=== PATIENT | male | born 1985 | race Caucasian/White ===

== ENCOUNTER 2018-08-25 23:54 | Observation (INO) | payer MEDICAID ==
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
[2018-08-26] MEDS ORDERED: Diphtheria,Pertussis(Acell),Tetanus Vaccine 0.5 ML Syringe IM ONE (01:07)
[2018-08-26] MEDS ORDERED: Ondansetron 4 MG/2 ML SDV ONE (01:28)
[2018-08-26] MEDS ORDERED: fentaNYL 250 MCG/5 ML SDV ONE (01:29)
[2018-08-26] MEDS ORDERED: Midazolam 1 MG/ML 2 ML SDV ONE (01:29)
[2018-08-26] MEDS ORDERED: Propofol 200 MG/20 ML SDV ONE (01:29)
[2018-08-26] MEDS ORDERED: ceFAZolin 1 GM Vial ONE (01:31)
[2018-08-26] MEDS ORDERED: Bupivacaine 0.5% 30 ML SDV ONE (01:33)
[2018-08-26] MEDS ORDERED: Lidocaine 1% with EPINEPHrine 1:100,000 20 ML MDV ONE (01:33)
[2018-08-26] MEDS ORDERED: Rocuronium 50 MG/5 ML Vial ONE (01:47)
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
[2018-08-26] MEDS ORDERED: Lactated Ringers 1,000 ML ONE (03:21)
[2018-08-26] MEDS ORDERED: Sodium Chloride 0.9% 1,000 ML ONE (03:21)
[2018-08-26] MEDS ORDERED: Sodium Chloride 0.9% 100 ML ONE (04:50)
[2018-08-26] MEDS ORDERED: Bacitracin Oint 15 GM Tube ONE (04:54)
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
[2018-08-26] MEDS ORDERED: HYDROmorphone 0.5 MG/0.5 ML Syringe IVPUSH PRN ×2 (05:56→06:52)
[2018-08-26] MEDS ORDERED: fentaNYL 100 MCG/2 ML SDV IVPUSH PRN (05:56)
--- NOTE | 2018-08-26 05:58 | PCM.POSTAN ---
POST ANESTHESIA ASSESSMENT - MENTAL STATUS Mental Status: Somnolent - VITAL SIGNS Pulse Rate: 112 SaO2: 94 Resp Rate: 15 Blood Pressure: 114/70 Temperature: 37.7 C - RESPIRATORY Respiratory Status: Respiratory Rate WNL, Airway Patent, O2 Saturation Stable, Supplemental Oxygen - CARDIOVASCULAR CV Status: Pulse Rate WNL, Blood Pressure Stable - GASTROINTESTINAL GI Status: No Symptoms - PAIN Pain Score: 0 - POST OP HYDRATION Hydration Status: Adequate & Stable - OBSERVATIONS Free Text/Narrative:: no anesthesia complications noted
--- NOTE | 2018-08-26 06:00 | PCM.PREANE ---
Preanesthetic Assessment - Anesthesia/Transfusion/Family Hx Anesthesia History: Prior Anesthesia Without Reaction Family History of Anesthesia Reaction: No Transfusion History: No Prior Transfusion(s) - Review of Systems General: Weakness, Fatigue, Malaise Pulmonary: No Symptoms Cardiovascular: No Symptoms Gastrointestinal: Abdominal Pain Neurological: Numbness (right arm), Weakness (right arm) Other: Reports: Depression, Anxiety - Physical Assessment NPO Status Date: 08/26/18 NPO Status Time: 23:15 Pulse: 96 O2 Sat by Pulse Oximetry: 96 Respiratory Rate: 20 Blood Pressure: 110/63 Temperature: 37.7 C Vital Signs: Last Vital Signs Temp 37.7 C 08/26/18 05:58 Pulse 112 H 08/26/18 05:58 Resp 15 08/26/18 05:58 BP 114/70 08/26/18 05:58 Pulse Ox 94 L 08/26/18 05:58 Height: 1.8 m Weight: 90.718 kg ASA Class: 2E Mental Status: Alert & Oriented x3 Airway Class: Mallampati = 1 Dentition: Reports: Normal Dentition Thyro-Mental Finger Breadths: 3 Mouth Opening Finger Breadths: 3 ROM/Head Extension: Full Lungs: Clear to Auscultation, Normal Respiratory Effort Cardiovascular: Regular Rate, Regular Rhythm - Lab Values: Laboratory Last Values WBC 11.49 K/mm3 (4.23-9.07) H 08/26/18 05:15 RBC 3.65 M/mm3 (4.63-6.08) L 08/26/18 05:15 Hgb 11.1 gm/L (13.7-17.5) L 08/26/18 05:15 Hct 32.9 % (40.1-51.0) L 08/26/18 05:15 MCV 90.1 fl (79.0-92.2) 08/26/18 05:15 MCH 30.4 pg (25.7-32.2) 08/26/18 05:15 MCHC 33.7 g/dl (32.2-35.5) 08/26/18 05:15 RDW Std Deviation 42.2 fL (35.1-43.9) 08/26/18 05:15 Plt Count 218 K/mm3 (163-337) 08/26/18 05:15 MPV 8.8 fl (9.4-12.3) L 08/26/18 05:15 Neut % (Auto) 87.5 % (34.0-67.9) H 08/26/18 05:15 Lymph % (Auto) 8.3 % (21.8-53.1) L 08/26/18 05:15 [place] % (Auto) 3.7 % (5.3-12.2) L 08/26/18 05:15 Eos % (Auto) 0.1 (0.8-7.0) L 08/26/18 05:15 Baso % (Auto) 0.2 % (0.1-1.2) 08/26/18 05:15 Neut # (Auto) 10.06 K/mm3 (1.78-5.38) H 08/26/18 05:15 Lymph # (Auto) 0.95 K/mm3 (1.32-3.57) L 08/26/18 05:15 [place] # (Auto) 0.43 K/mm3 (0.30-0.82) 08/26/18 05:15 Eos # (Auto) 0.01 K/mm3 (0.04-0.54) L 08/26/18 05:15 Baso # (Auto) 0.02 K/mm3 (0.01-0.08) 08/26/18 05:15 Manual Slide Review Normal smear 08/26/18 00:06 PT 12.4 SECONDS (9.5-12.1) H 08/26/18 05:15 INR 1.14 08/26/18 05:15 APTT 26 SECONDS (24-31) 08/26/18 05:15 Sodium 142 mEq/L (136-145) 08/26/18 05:20 Potassium 4.6 mEq/L (3.5-5.1) 08/26/18 05:20 Chloride 111 mEq/L (98-107) H 08/26/18 05:20 Carbon Dioxide 20 mEq/L (21-32) L 08/26/18 05:20 Anion Gap 15.6 (5-15) H 08/26/18 05:20 BUN 9 mg/dL (7-18) 08/26/18 05:20 Creatinine 1.1 mg/dL (0.7-1.3) 08/26/18 05:20 Est Cr Clr Drug Dosing 100.78 mL/min 08/26/18 05:20 Estimated GFR (MDRD) > 60 mL/min (>60) 08/26/18 05:20 BUN/Creatinine Ratio 8.2 (14-18) L 08/26/18 05:20 Glucose 125 mg/dL (74-106) H 08/26/18 05:20 Calcium 7.2 mg/dL (8.5-10.1) L 08/26/18 05:20 Total Bilirubin 0.5 mg/dL (0.2-1.0) 08/26/18 05:20 AST 37 U/L (15-37) 08/26/18 05:20 ALT 45 U/L (16-63) 08/26/18 05:20 Alkaline Phosphatase 44 U/L (46-116) L 08/26/18 05:20 Total Protein 4.9 g/dl (6.4-8.2) L 08/26/18 05:20 Albumin 2.6 g/dl (3.4-5.0) L 08/26/18 05:20 Globulin 2.3 gm/dL 08/26/18 05:20 Albumin/Globulin Ratio 1.1 (1-2) 08/26/18 05:20 Urine Color Yellow (Yellow) 08/26/18 01:36 Urine Appearance Clear (Clear) 08/26/18 01:36 Urine pH 6.5 (5.0-8.0) 08/26/18 01:36 Ur Specific [place] 1.010 (1.005-1.030) 08/26/18 01:36 Urine Protein Negative (Negative) 08/26/18 01:36 Urine Glucose (UA) Negative (Negative) 08/26/18 01:36 Urine Ketones Negative (Negative) 08/26/18 01:36 Urine Occult Blood Negative (Negative) 08/26/18 01:36 Urine Nitrite Negative (Negative) 08/26/18 01:36 Urine Bilirubin Negative (Negative) 08/26/18 01:36 Urine Urobilinogen 0.2 (0.2-1.0) 08/26/18 01:36 Ur Leukocyte Esterase Negative (Negative) 08/26/18 01:36 Urine RBC Not seen /hpf (0-5) 08/26/18 01:36 Urine WBC Not seen /hpf (0-5) 08/26/18 01:36 Ur Epithelial Cells Not seen /hpf (0-5) 08/26/18 01:36 Urine Bacteria Not seen /hpf (FEW) 08/26/18 01:36 Urine Mucus Not seen /hpf (FEW) 08/26/18 01:36 Urine Opiates Screen Negative (FVZJBA=123) 08/26/18 01:36 Ur Buprenorphine Scrn Negative (CUTOFF=10) 08/26/18 01:36 Ur Oxycodone Screen Negative (XRL3DN=131) 08/26/18 01:36 Urine Methadone Screen Negative (QQB7RN=366) 08/26/18 01:36 Ur Propoxyphene Screen Negative (YBXHHG=324) 08/26/18 01:36 Ur Barbiturates Screen Negative (WEIPBA=550) 08/26/18 01:36 Ur Tricyclics Screen Negative (MRDMDU=814) 08/26/18 01:36 Ur Phencyclidine Scrn Negative (CUTOFF=25) 08/26/18 01:36 Ur Amphetamine Screen Negative (YINKOY=660) 08/26/18 01:36 U Methamphetamines Scrn Negative (JIHJDU=745) 08/26/18 01:36 U Benzodiazepines Scrn Negative (ODMTEE=171) 08/26/18 01:36 U Cocaine Metab Screen Negative (PRJDZB=409) 08/26/18 01:36 U Marijuana (THC) Screen Negative (CUTOFF=50) 08/26/18 01:36 Ethyl Alcohol 0.27 gm% (0.00) 08/26/18 00:06 Blood Type A POSITIVE 08/26/18 00:06 Gel Antibody Screen Negative 08/26/18 00:06 Crossmatch See Detail 08/26/18 00:06 - Allergies Allergies/Adverse Reactions: Allergies Allergy/AdvReac Type Severity Reaction Status Date / Time No Known Allergies Allergy Verified 08/26/18 01:15 - Blood Blood Available: Yes Product(s) Available: PRBC, FFP - Anesthesia Plan Pre-Op Medication Ordered: None - Acknowledgements Anesthesia Type Planned: General Anesthesia Pt an Appropriate Candidate for the Planned Anesthesia: Yes Alternatives and Risks of Anesthesia Discussed w Pt/Guardian: Yes Pt/Guardian Understands and Agrees with Anesthesia Plan: Yes PreAnesthesia Questionnaire Psychiatric History: Reports: Anxiety Dermatologic History: Reports: Psoriasis - Past Surgical History HEENT Surgical History: Reports: Oral Surgery - SUBSTANCE USE Smoking Status *Q: Current Every Day Smoker Tobacco Use Within Last Twelve Months: Cigarettes - HOME MEDS Home Medications: Home Meds . [No Known Home Meds] 08/26/18 [History] - CURRENT (IN HOUSE) MEDS Current Meds: Current Medications Fentanyl (Sublimaze) 50 mcg IVPUSH Q5M PRN PRN Reason: Pain Hydromorphone HCl (Dilaudid) 0.5 mg IVPUSH Q10M PRN PRN Reason: Pain (severe 7-10) Discontinued Medications Bacitracin (Bacitracin Oint) Confirm Administered Dose 15 gm .ROUTE .STK-MED ONE Stop: 08/26/18 04:55 Bupivacaine HCl (Marcaine 0.5%) Confirm Administered Dose 30 ml .ROUTE .STK-MED ONE Stop: 08/26/18 01:34 Cefazolin Sodium (Ancef) Confirm Administered Dose 2 gm .ROUTE .STK-MED ONE Stop: 08/26/18 01:32 Diphtheria/Tetanus/Acell Pertussis (Adacel) 0.5 ml IM .ONCE ONE Stop: 08/26/18 01:08 Last Admin: 08/26/18 01:17 Dose: 0.5 ml Fentanyl (Sublimaze) Confirm Administered Dose 250 mcg .ROUTE .STK-MED ONE Stop: 08/26/18 01:30 Sodium Chloride (Normal Saline) Confirm Administered Dose 1,000 mls @ as directed .ROUTE .STK-MED ONE Stop: 08/26/18 03:22 Lactated Ringer's (Ringers, Lactated) Confirm Administered Dose 1,000 mls @ as directed .ROUTE .STK-MED ONE Stop: 08/26/18 03:22 Sodium Chloride (Normal Saline) Confirm Administered Dose 100 mls @ as directed .ROUTE .STK-MED ONE Stop: 08/26/18 04:51 Lidocaine/Epinephrine (Xylocaine 1% With Epinephrine 1:100,000) Confirm Administered Dose 20 ml .ROUTE .STK-MED ONE Stop: 08/26/18 01:34 Midazolam HCl (Versed 1 Mg/Ml) Confirm Administered Dose 2 mg .ROUTE .STK-MED ONE Stop: 08/26/18 01:30 Ondansetron HCl (Zofran) Confirm Administered Dose 4 mg .ROUTE .STK-MED ONE Stop: 08/26/18 01:29 Propofol (Diprivan 20 Ml) Confirm Administered Dose 200 mg .ROUTE .STK-MED ONE Stop: 08/26/18 01:30 Rocuronium [place] (Zemuron) Confirm Administered Dose 50 mg .ROUTE .STK-MED ONE Stop: 08/26/18 01:48 Tranexamic Acid (Cyklokapron) Confirm Administered Dose 1,000 mg .ROUTE .STK- MED ONE Stop: 08/26/18 04:35
[2018-08-26] MEDS ORDERED: Ondansetron 4 MG in Sodium Chloride 0.9% 50 ML IV PRN (06:51)
[2018-08-26] MEDS ORDERED: Tranexamic Acid 1,000 MG in Sodium Chloride 0.9% 100 ML IV ONE (07:00)
--- NOTE | 2018-08-26 07:02 | CR ---
Chest: Portable supine view of the chest is obtained. Comparison: No prior chest x-ray. Heart size and mediastinum are within normal limits. Lungs are clear. Bony structures are grossly intact. Impression: 1. Nothing acute is seen on supine chest x-ray. Diagnostic code #1
--- NOTE | 2018-08-26 07:02 | CT ---
CT abdomen and pelvis Technique: Multiple axial sections were obtained from above the dome of the diaphragm inferiorly through the pubic symphysis. Intravenous contrast was given. No oral contrast was utilized. Comparison: No prior abdominal imaging. Findings: Small portion of the visualized lung bases show nothing acute. Liver contains no focal abnormality. Spleen appears within normal limits. Adrenal glands are unremarkable. Pancreas appears normal. Gallbladder contains no calcified gallstones. Kidneys show symmetric contrast enhancement without hydronephrosis or mass. Aorta shows no aneurysm. No retroperitoneal adenopathy or mesenteric abnormalities are seen. No pelvic mass or adenopathy is seen. No free fluid or inflammatory change is seen. Bone window settings were reviewed which show no acute osseous abnormality. Incidental note of bilateral spondylolytic defects at L5-S1. Impression: 1. Incidental spondylolytic defect. 2. Nothing acute is seen on CT study of the abdomen and pelvis. Diagnostic code #2 I agree with preliminary report from [facility], finalized on 08/26/18, 2:49 AM Central Time
[2018-08-26] MEDS ORDERED: Ondansetron 4 MG/2 ML SDV IV PRN (07:06)
--- NOTE | 2018-08-26 07:09 | CT ---
CT angiogram of right upper extremity Technique: Multiple axial sections were obtained through the upper extremity. Intravenous contrast was given in the arterial phase. Findings: Visualized subclavian and axillary arteries appear patent. Brachial artery appears patent. Proximal radial and ulnar arteries appear patent. No contrast extravasation is seen. Soft tissue injury is noted to the upper extremity along the lateral surface. Mild subcutaneous increased density is seen extending to the deltoid muscle compatible with soft tissue swelling. No fluid collections are seen. Impression: 1. No arterial abnormality is seen within the right upper extremity. 2. Soft tissue injury within the lateral right upper extremity involving the skin and subcutaneous fat. Diagnostic code #2 I agree with preliminary report from [facility], finalized on 08/26/18, 2:35 AM Central Time
[2018-08-26] MEDS: ceFAZolin 2 GM in Premix Bag 1 BAG IV SCH ×2 (09:18→18:00)
[2018-08-26] MEDS: HYDROmorphone 1 MG/ML Syringe IVPUSH PRN ×7 (10:11→23:26)
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
[2018-08-26] MEDS ORDERED: Thiamine 100 MG in Sodium Chloride 0.9% 100 ML IV ONE (12:04)
[2018-08-26] MEDS ORDERED: Sodium Chloride 0.9% 1,000 ML IV SCH (12:15)
[2018-08-26] MEDS ORDERED: Folic Acid 50 MG/10 ML MDV IV ONE (13:00)
[2018-08-26] MEDS ORDERED: Thiamine 200 MG/2 ML MDV IVPUSH ONE (13:00)
[2018-08-26] MEDS ORDERED: ceFAZolin/Dextrose,Iso-Osmotic 2 GM/50 ML Duplex Bag IV ONE (16:47)
--- NOTE | 2018-08-26 23:29 | PCM.SN ---
- Free Text/Narrative Note: Patient re-examined. RIGHT radial pulse palpable. Abdomen remains soft. Patient is hungry. Will advance diet. Add oral pain medication.
[2018-08-27] MEDS: HYDROmorphone 1 MG/ML Syringe IVPUSH PRN (01:47)
[2018-08-27] MEDS: Acetaminophen/oxyCODONE 325-5 MG Tab PO PRN ×5 (03:59→22:07)
--- NOTE | 2018-08-27 07:39 | PCM48HPAN ---
Post Anesthesia Note - EVALUATION WITHIN 48HRS OF ANESTHETIC Vital Signs in Normal Range: Yes Patient Participated in Evaluation: Yes Respiratory Function Stable: Yes Airway Patent: Yes Cardiovascular Function Stable: Yes Hydration Status Stable: Yes Pain Control Satisfactory: Yes Nausea and Vomiting Control Satisfactory: Yes Mental Status Recovered: Yes Pulse Rate: 75 Resp Rate: 18 Temperature: 36.8 C Blood Pressure: 119/92 - COMMENTS/OBSERVATIONS Free Text/Narrative:: no anesthesia complications noted
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
[2018-08-28] MEDS: Acetaminophen/oxyCODONE 325-5 MG Tab PO PRN ×5 (02:19→19:36)
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
[2018-08-28] MEDS ORDERED: Nicotine 21 MG/24 Hr Patch TRDERM SCH (20:00)
[2018-08-29] MEDS: Acetaminophen/oxyCODONE 325-5 MG Tab PO PRN ×3 (00:47→08:21)
[2018-08-29] MEDS ORDERED: Remove Patch*NICOTINE TRDERM SCH (09:00)
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
--- NOTE | 2018-08-31 09:03 | DISCH ---
ADMISSION DATE: 08/26/2018 DISCHARGE DATE: 08/29/2018 ADDENDUM: We will set him up with outpatient PT, OT and discharge him with hydrocodone 1 p.o. q.i.d. p.r.n. pain, #30, and have an arm sling and encourage elevation of the hand. MMODAL /[id number]
== END 2018-08-29 08:55 | disposition home or self-care (01) ==
LOC: JD.ED 23:54 → JD.SDS 08-26 01:24 → JD.MS 08-26 06:46 → INTOOBSV 08-27 11:46 → OBSVTOIN 08-27 11:46
PROVIDERS: ADMIT Student in an Organized Health Care Education/Training Program; ATTEND Student in an Organized Health Care Education/Training Program
DX: S51.811A Laceration without foreign body of right forearm, initial encounter (principal); S51.011A Laceration without foreign body of right elbow, initial encounter; S41.111A Laceration without foreign body of right upper arm, initial encounter; S31.113A Laceration without foreign body of abdominal wall, right lower quadrant without penetration into peritoneal cavity, initial encounter; R57.8 Other shock; F10.920 Alcohol use, unspecified with intoxication, uncomplicated; W45.8XXA Other foreign body or object entering through skin, initial encounter
CPT/HCPCS: 20102; 20103; 36415; 36430; 71045; 73206; 74177; 80053; 80306; 81001; 85025; 85027; 85610; 85730; 86850; 86900; 86901; 86922; 90471; 90700; 96360; 96361; 97116; 97161; 97166; 97530; 99285; A9270; G0390; G0480; J0690; J1170; J2250; J2405; J2704; J3010; J3411; J7030; J7040; J7120; P9016; P9017; 00400; 96374; 96375; 99284; G0378; J3490